=== PATIENT | male | born 1965 ===

== ENCOUNTER 2019-03-17 23:23 | Emergency (ER) | payer OTHER ==
[2019-03-18] MEDS ORDERED: HYDROmorphone INJ* 0.5 MG/0.5 ML SYRINGE IM ONE (00:27)
[2019-03-18] MEDS ORDERED: PROCHLORPERAZINE INJ 5 MG/ML 2 ML VIAL IM ONE (00:28)
--- NOTE | 2019-03-18 00:34 | ED ---
Lower Extremity - HPI Summary HPI Summary: This patient is a 53 year old M presenting to ED with a chief complaint of R hip pain s/p fall at 1830. He tripped and fell forward and then to the right side. He landed on his R forearm and R thigh. The CC is described as a Mohan horse to his R thigh. He was able to stand up after the fall and ambulate with a limp but was unable to lift or flex his R leg. Prior treatment includes Tylenol, but the pain worsened over time. The patient rates the pain 7/10 in severity. Symptoms aggravated by nothing. Symptoms alleviated by lying on his R side. Patient reports lower back pain close to the R hip. Patient denies groin pain. PMHx of arthritis in the R hip. - History of Current Complaint Chief Complaint: EDHipPelvisInjury Stated Complaint: "FALL" PER PT Time Seen by Provider: 03/18/19 00:20 Hx Obtained From: Patient Mechanism Of Injury: Fall From A Standing Position Onset of Pain: Hours - at 1830 Onset/Duration: Still Present Severity Currently: Moderate Pain Intensity: 7 Pain Scale Used: 0-10 Numeric Timing: Constant, Lasting Hours Location: Is Discrete @ - R hip and R lower back near the hip Aggravating Factor(s): Nothing Alleviating Factor(s): Other - lying on his R hip helps the pain Able to Bear Weight: Yes - with a limp - Allergies/Home Medications Allergies/Adverse Reactions: Allergies Allergy/AdvReac Type Severity Reaction Status Date / Time MS Erythromycin Allergy Unknown Verified 12/05/16 15:12 [Erythromycin] Reaction Details Home Medications: Home Medications Cannabidiol (Cbd) Extract [Epidiolex] 100 mg PO BEDTIME 03/18/19 [History Confirmed 03/18/19] Trazodone HCl 50 mg PO BEDTIME 03/18/19 [History Confirmed 03/18/19] PMH/Surg Hx/FS Hx/Imm Hx Endocrine/Hematology History: Denies: Hx Diabetes Cardiovascular History: Denies: Hx Hypertension, Hx Pacemaker/ICD History: Denies: Hx Renal Disease Sensory History: Denies: Hx Hearing Aid Psychiatric History: Denies: Hx Panic Disorder Infectious Disease History: No Infectious Disease History: Denies: Traveled Outside the [place] in Last 30 Days - Family History Known Family History: Negative: Cardiac Disease, Hypertension, Diabetes - Social History Alcohol Use: None Hx Substance Use: No Substance Use Type: Reports: None Hx Tobacco Use: No Smoking Status (MU): Never Smoked Tobacco Review of Systems Positive: other - denies groin pain Positive: Other - R hip pain, able to ambulate with a limp, unable to lift or flex his R leg, R lower back pain close to his R hip All Other Systems Reviewed And Are Negative: Yes Physical Exam - Summary Physical Exam Summary: VITAL SIGNS: Reviewed. GENERAL: Patient is a well-developed and nourished MALE who is lying comfortable in the stretcher. Patient is not in any acute respiratory distress. HEAD AND FACE: No signs of trauma. No ecchymosis, hematomas or skull depressions. No sinus tenderness. EYES: PERRLA, EOMI x 2, No injected conjunctiva, no nystagmus. EARS: Hearing grossly intact. Ear canals and tympanic membranes are within normal limits. MOUTH: Oropharynx within normal limits. NECK: Supple, trachea is midline, no adenopathy, no JVD, no carotid bruit, no c- spine tenderness, neck with full ROM CHEST: Symmetric, no tenderness at palpation LUNGS: Clear to auscultation bilaterally. No wheezing or crackles. CVS: Regular rate and rhythm, S1 and S2 present, no murmurs or gallops appreciated. ABDOMEN: Soft, non-tender. No signs of distention. No rebound no guarding, and no masses palpated. Bowel sounds are normal. EXTREMITIES: No edema, no cyanosis or clubbing. Significant decrease in R hip movement due to the pain. Mild shortening and extension of the RLE. NEURO: Alert and oriented x 3. No acute neurological deficits. Speech is normal and follows commands. SKIN: Dry and warm Triage Information Reviewed: Yes Vital Signs On Initial Exam: Initial Vitals Temp Pulse Resp BP Pulse Ox 99.9 F 100 18 174/123 99 03/17/19 23:26 03/17/19 23:26 03/17/19 23:26 03/17/19 23:26 03/17/19 23:26 Vital Signs Reviewed: Yes Diagnostics - Vital Signs Vital Signs Temp Pulse Resp BP Pulse Ox 03/17/19 23:26 99.9 F 100 18 174/123 99 - Laboratory Lab Statement: Any lab studies that have been ordered have been reviewed, and results considered in the medical decision making process. - Radiology R femur XR Radiology Interpretation Completed By: ED Physician Summary of Radiographic Findings: Severe degenerative disease of the R hip. Pending radiologist official report. R hip XR Radiology Interpretation Completed By: ED Physician Summary of Radiographic Findings: Severe degenerative disease of the R hip. Pending radiologist official report. - CT Pelvic CT CT Interpretation Completed By: Radiologist Summary of CT Findings: 1. No acute fracture identified. 2. Chronic deformity of proximal right femur with extensive remodeling and degenerative change of right acetabulum. 3. Degenerative change also present at left hip and bilateral SI joints. Dr. Rueda has reviewed this radiology report. Re-Evaluation - Re-Evaluation First Eval Re-Evaluation Time: 02:33 Change: Improved Comment: Discussed results and plan for discharge with the patient. Patient understands and agrees with this plan. Lower Extremity Course/Dx - Course Assessment/Plan: This patient is a 53 year old M presenting to ED with a chief complaint of R hip pain s/p fall at 1830. In the ED course, the patient was given Dilaudid and Compazine for pain. R femur XR reveals severe degenerative disease of the R hip. R hip XR reveals severe degenerative disease of the R hip. Pelvic CT reveals 1. No acute fracture identified. 2. Chronic deformity of proximal right femur with extensive remodeling and degenerative change of right acetabulum. 3. Degenerative change also present at left hip and bilateral SI joints. This patient will be discharged with dx of right hip osteoarthritis. Patient was able to ambulate in the ED with a walker. Patient understands and agrees with this plan. - Diagnoses Differential Diagnosis/HQI/PQRI: Positive: Other - right hip osteoarthritis Provider Diagnoses: Osteoarthritis of right hip Discharge - Sign-Out/Discharge Documenting (check all that apply): Patient Departure - discharge Patient Received Moderate/Deep Sedation with Procedure: No - Discharge Plan Condition: Stable Disposition: HOME Patient Education Materials: Osteoarthritis (ED) Referrals: Kacie Taylor MD [Medical Doctor] - (Follow up in 2-3 days.) Additional Instructions: PLEASE RETURN TO THE ED IMMEDIATELY FOR WORSENING OR CONCERNING SYMPTOMS. - Attestation Statements Document Initiated by Scribe: Yes Documenting Scribe: Kris Fuentes Provider For Whom Scribe is Documenting (Include Credential): Jose Rueda MD Scribe Attestation: IKris, scribed for Jose Rueda MD on 03/18/19 at 0229. Status of Scribe Document: Ready
[2019-03-18 03:19] VITALS: BP 149/92
== END 2019-03-18 02:41 | disposition home or self-care (01) ==
LOC: ED 23:23
DX: M16.11 Unilateral primary osteoarthritis, right hip (principal); M25.551 Pain in right hip; M54.5 Low back pain
CPT/HCPCS: 72192; 96372; 99282; J0780; J1170

== ENCOUNTER 2019-10-23 15:42 | Emergency (ER) | payer OTHER ==
[2019-10-23 16:09] VITALS: BP 167/96
[2019-10-23] MEDS ORDERED: Rabies VIRUS VACCINE (RabAvert)* 2.5 UNITS VIAL IM ONE (16:19)
[2019-10-23] MEDS ORDERED: Rabies Immune Globulin/PF 1ML* 1 ML/300 UNITS VIAL IM ONE (16:19)
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
== END 2019-10-23 17:06 | disposition home or self-care (01) ==
LOC: UCEAST 15:42
DX: Z20.3 Contact with and (suspected) exposure to rabies (principal); Z88.1 Allergy status to other antibiotic agents
CPT/HCPCS: 90375; 90471; 90675; 96372; 99211; G0463

== ENCOUNTER 2022-10-04 08:46 | Observation (INO) ==
[~2022-10-04 08:46] MED LIST: Buffered Lidocaine 1% SYRIN 1 ml INTRADERM ONE; Dexamethasone IV 4 MG/ML VIAL 1 ml VIAL IV SLOW PU ONE; Lactated Ringers 1000 ml BAG 1,000 ML IV SCH; Midazolam 5 mg/ml concentrated 5 mg/ml 1 ml VIAL ONE
[2022-10-04] MEDS ORDERED: Famotidine IV 10 MG/ML 2 ml VIAL (20 mg) ONE (10:42)
[2022-10-04] MEDS ORDERED: Dexamethasone IV 4 MG/ML VIAL 1 ml VIAL ONE (10:42)
[2022-10-04] MEDS ORDERED: ceFAZolin 2 GM PREMIX 2 GM/50 ML BAG ONE (10:45)
[2022-10-04] MEDS ORDERED: ROPIVACAINE 5 MG/ML 30 ML BTL (0.5%) ONE ×2 (12:12→16:01)
[2022-10-04] MEDS ORDERED: fentaNYL 250 mcg/5 ml 50 MCG/ML 5 ml VIAL (250 MCG) ONE (13:11)
[2022-10-04] MEDS ORDERED: Midazolam 2 mg/2 ml VIAL 1 mg/ml 2 ml VIAL (2 mg) ONE (13:11)
[2022-10-04] MEDS ORDERED: Rocuronium 50 mg VIAL 10 mg/ml 5 ml VIAL (50 mg) ONE (13:11)
[2022-10-04] MEDS ORDERED: Propofol 10 MG/ML 20 ML BTL ONE (13:13)
[2022-10-04] MEDS ORDERED: Lidocaine 2% PF 5 ML VIAL ONE (13:13)
[2022-10-04] MEDS ORDERED: Succinylcholine 200 mg VIAL 20 mg/ml 10 ml VIAL (200 mg) ONE (13:24)
[2022-10-04] MEDS ORDERED: HYDROmorphone 0.5 MG/0.5 ML SYRINGE ONE (13:48)
[2022-10-04] MEDS ORDERED: Ketamine HCL 50 mg/ml 10 ml VIAL (500 MG) ONE (14:08)
[2022-10-04] MEDS ORDERED: Magnesium Hydroxide LIQ 30 ML UDC PO PRN (14:17)
[2022-10-04] MEDS ORDERED: Morphine 2 MG/ML SYRINGE IV PRN (14:17)
[2022-10-04] MEDS ORDERED: Ondansetron ODT 4 mg TAB 4 MG TAB PO PRN (14:17)
[2022-10-04] MEDS ORDERED: Lactulose 30 ml UDC PO PRN (14:17)
[2022-10-04] MEDS ORDERED: Ondansetron 4 mg VIAL 2 MG/ML 2 ml VIAL IV PRN (14:17)
[2022-10-04] MEDS ORDERED: ceFAZolin 1 GM ADVAN 1 GM in NS 0.9% 50 ML 50 ML IVPB SCH (15:00)
[2022-10-04] MEDS ORDERED: Sugammadex 500 MG/5 ML 5 ml VIAL IV PUSH ONE (15:04)
[2022-10-04] MEDS ORDERED: Ondansetron 4 mg VIAL 2 MG/ML 2 ml VIAL ONE ×2 (15:04→17:34)
[2022-10-04] MEDS ORDERED: Scopolamine 1 mg/72hr PATCH ONE (18:43)
[2022-10-04] MEDS ORDERED: Metoclopramide 5 MG/ML VIAL (10 mg) ONE (18:43)
[2022-10-04] MEDS: Lactated Ringers 1000 ml BAG 1,000 ML IV SCH (18:49)
[2022-10-04] MEDS ORDERED: Metoclopramide 5 MG/ML VIAL (10 mg) IV PRN (18:51)
[2022-10-04] MEDS ORDERED: Scopolamine 1 mg/72hr PATCH TRANSDERM ONE (19:00)
[2022-10-04] MEDS: Magnesium Hydroxide LIQ 30 ML UDC PO SCH (22:22)
[2022-10-04] MEDS: ceFAZolin 1 GM ADVAN 1 GM in NS 0.9% 50 ML 50 ML IVPB SCH (22:22)
[2022-10-05] MEDS: Lactated Ringers 1000 ml BAG 1,000 ML IV SCH (05:12)
[2022-10-05 06:10] LABS: Hematocrit 36 % (42-52); Hemoglobin 12.2 g/dL (14.0-18.0); Mean Platelet Volume 8.3 fL (7.4-10.4); Platelet Count 221 10^3/uL (150-450)
[2022-10-05] MEDS: ceFAZolin 1 GM ADVAN 1 GM in NS 0.9% 50 ML 50 ML IVPB SCH ×2 (06:30→14:07)
[2022-10-05 07:06] LABS: Calcium 8.3 mg/dL (8.6-10.3); Potassium 4.4 mmol/L (3.5-5.0); eGFR CKD-EPI 103.6 (>60)
[2022-10-05] MEDS: Magnesium Hydroxide LIQ 30 ML UDC PO SCH (07:58)
[2022-10-05] MEDS ORDERED: Vitamin THERAPEUTIC TAB PO SCH (09:00)
[2022-10-05 11:08] VITALS: BP 124/78
[2022-10-10 16:05] LABS: HLA B27 Negative
== END 2022-10-05 17:00 | disposition home or self-care (01) ==
LOC: SSU 08:46 → OR 08:46
PROVIDERS: ADMIT Orthopaedic Surgery Adult Reconstructive Orthopaedic Surgery; ATTEND Orthopaedic Surgery Adult Reconstructive Orthopaedic Surgery